=== PATIENT | male | born 1965 | race Caucasian/White ===

== ENCOUNTER 2017-05-10 16:38 | Outpatient (CLI) | payer BC ==
--- NOTE | 2017-05-10 17:23 | RAD ---
PA AND LATERAL CHEST: 05/10/17 HISTORY: Preop. Heart size and mediastinum are within normal limits. The lungs are clear of infiltrates. There are ar thritic changes in the spine. IMPRESSION: No active intrathoracic disease. POS: [facility]
[2017-05-10 17:57] LABS: ALT (SGPT) 33 U/L (8-55); AST (SGOT) 27 U/L (5-34); Alkaline Phosphatase 57 U/L (40-150); Anion Gap 17 mmol/L (10-20); BUN (Urea Nitrogen) 24 mg/dL (8.4-25.7); Bilirubin, Direct 0.3 mg/dL (0.1-0.3); Bilirubin, Total 0.7 mg/dL (0.2-1.2); Calc. Creatinine Clearance 0 mL/min (70-130); Calcium 10.2 mg/dL (7.8-10.44); Carbon Dioxide 27 mmol/L (22-29); Chloride 100 mmol/L (98-107); Estimated GFR-MDRD 84; Protein, Total 7.8 g/dL (6.0-8.3)
--- NOTE | 2017-05-11 17:00 | EKG ---
Test Reason : Blood Pressure : / mmHG Vent. Rate : 092 BPM Atrial Rate : 092 BPM P-R Int : 000 ms QRS Dur : 090 ms QT Int : 364 ms P-R-T Axes : 256 054 -06 degrees QTc Int : 450 ms Unusual P axis, possible ectopic atrial rhythm Abnormal QRS-T angle, consider primary T wave abnormality Abnormal ECG No previous ECGs available Confirmed by DR. Josephine WILCOX ([id number]) on 05/11/2017 5:00:29 PM Referred By: KATHY Confirmed By:DR. Josephine WILCOX
== END 2017-05-10 16:39 | disposition home or self-care (01) ==
LOC: LABBT 16:38
PROVIDERS: ATTEND Surgery
DX: Z01.818 Encounter for other preprocedural examination (principal); E66.01 Morbid (severe) obesity due to excess calories
CPT/HCPCS: 71020; 80053; 80076; 83036; 93005; 93010

== ENCOUNTER 2017-05-23 05:48 | Inpatient (IN) | payer BC ==
[2017-05-10 16:46] VITALS: BMI 40.3
[2017-05-23] MEDS ORDERED: HYDROmorphone 0.5 MG/0.5 ML SYRINGE ONE (06:30)
[2017-05-23] MEDS ORDERED: metroNIDAZOLE 500 MG/100 ML BAG ONE (06:30)
[2017-05-23] MEDS ORDERED: Fentanyl 100 MCG/2 ML VIAL ONE (06:31)
[2017-05-23] MEDS ORDERED: Bupivacaine/Epinephrine 0.25% 30 ML VIAL ONE (06:39)
[2017-05-23] MEDS ORDERED: CEFAZOLIN/Water 2 GM/20 ML SYRINGE ONE (06:42)
[2017-05-23] MEDS ORDERED: Heparin 5,000 UNITS/ML VIAL ONE (06:42)
[2017-05-23] MEDS ORDERED: Hydrocodone-Acetamin 15 ML UDCUP PO PRN (08:44)
[2017-05-23] MEDS ORDERED: diphenhydrAMINE 50 MG/ML VIAL IVP PRN ×2 (08:44→09:23)
[2017-05-23] MEDS ORDERED: Dextrose 50% Abboject 50 ML SYRINGE SLOW IVP PRN (08:44)
[2017-05-23] MEDS ORDERED: Ondansetron HCl/PF 4 MG/2 ML Vial IVP PRN ×3 (08:44→09:23)
[2017-05-23] MEDS ORDERED: Promethazine HCl 25 MG/ML VIAL IM PRN ×3 (08:44→09:23)
[2017-05-23] MEDS ORDERED: hydrALAZINE 20 MG/ML VIAL SLOW IVP PRN (08:44)
[2017-05-23] MEDS ORDERED: Dextrose 5% in Water 1,000 ML IV PRN (08:44)
[2017-05-23] MEDS ORDERED: Naloxone HCl 0.4 mg/ml Vial IV PRN (09:23)
[2017-05-23] MEDS ORDERED: diphenhydrAMINE 25 MG CAP PO PRN (09:23)
[2017-05-23] MEDS ORDERED: diphenhydrAMINE 50 MG/ML VIAL IM PRN (09:23)
[2017-05-23] MEDS ORDERED: Zolpidem Tartrate 5 MG TAB PO PRN (09:23)
[2017-05-23] MEDS ORDERED: Fentanyl 5000 MCG/250 ML CADD IVPB PRN (09:23)
[2017-05-23] MEDS ORDERED: Promethazine HCl 25 MG/ML VIAL SLOW IVP PRN (09:23)
[2017-05-23] MEDS ORDERED: Communication Order-Pharmacy FS SCH (09:30)
[2017-05-23] MEDS ORDERED: fentaNYL Citrate/PF 2,000 MCG in Sodium Chloride 0.9% 60 ML IV PRN (10:00)
--- NOTE | 2017-05-23 10:09 | OP ---
PREOPERATIVE DIAGNOSIS: Morbid obesity. SURGEON: Luis Ahmadi M.D. PROCEDURE PERFORMED: Laparoscopic sleeve gastrectomy. INDICATIONS: A 51-year-old male, morbidly obese, who has attempted multiple weight loss programs wit hout success. FINDINGS: A 38 Arabic bougie used. PROCEDURE IN DETAIL: After informed consent was obtained, the patient was taken to the operating javier m and given general endotracheal anesthesia. She was placed in the supine position. The abdomen was prepped and draped in the usual fashion. Local anesthesia infiltrated subcutaneously and deep and a 12 mm incision was performed approximately 8 inches below the xiphoid slightly to the left. Veress needle inserted. Drop test performed. Pneumoperitoneum was created to a pressure of 15 mmHg. A 0 d egree laparoscope inserted. Under direct vision, a Fortunatoen liver retractor inserted. Left lobe of liver retracted superiorly. The pylorus identified a 12 mm port placed on the right beneath it and two 12s placed left subcostal. The omentum was taken off the greater curvature 5 cm from the omentum utilizing the LigaSure. The short gastrics divided with LigaSure and left crura defined with the Li gaSure. A 38-Arabic bougie inserted and directed into the antrum. The linear 60 mm green load stapl er used to divide the antrum to the bougie. Another green load used along the bougie, two gold loads used along the bougie, and then two blue loads through the angle of His. The bougie removed, intrao perative endoscopy was performed. The video endoscope inserted under direct vision and advanced into the sleeve. Staple line inspected. There was no bleeding. Staple line then tested by inflating th e new stomach with pressurized air under water. There was no air leak. Stomach decompressed. Scope removed. The remnant stomach removed from the abdomen through the left lateral port site. The fasc ia closed with 0 Vicryl suture and the GraNee needle. Hemostasis was assured. Trocars and retractor s were removed. Skin closed with interrupted 4-0 Rapide. Dermabond applied. The patient tolerated the procedure well and transferred to recovery in good condition. Sponge and needle count verified c orrect x2.
[2017-05-23] MEDS ORDERED: Ketorolac Tromethamine 30 MG/ML VIAL IVP SCH (12:00)
[2017-05-23] MEDS: Pantoprazole 40 MG VIAL IVP SCH (12:53)
[2017-05-23] MEDS: Enoxaparin Sodium 40 MG/0.4 ML SYRINGE SC SCH (12:53)
[2017-05-23] MEDS: 1/2 NS w/KCL 20 mEq 1,000 ML IV SCH ×3 (13:06→20:59)
[2017-05-23] MEDS ORDERED: Succinylcholine Chloride 20 MG/ML 10 ml SYRINGE FS ONE (14:02)
[2017-05-23] MEDS ORDERED: Lidocaine 1% PF 5 ML VIAL ONE (14:02)
[2017-05-23] MEDS ORDERED: Glycopyrrolate 0.2 MG/ML 5 ML SYRINGE ONE (14:02)
[2017-05-23] MEDS ORDERED: Dexamethasone 20 MG/5 ML VIAL ONE (14:02)
[2017-05-23] MEDS ORDERED: Ketorolac Tromethamine 30 MG/ML VIAL ONE (14:02)
[2017-05-23] MEDS ORDERED: Metoclopramide HCl 10 MG/2 ML VIAL ONE (14:02)
[2017-05-23] MEDS ORDERED: Ondansetron HCl/PF 4 MG/2 ML Vial ONE (14:02)
[2017-05-23] MEDS ORDERED: Propofol 200 MG/20 ML VIAL ONE (14:02)
[2017-05-23] MEDS: Ketorolac Tromethamine 30 MG/ML VIAL IVP SCH ×2 (15:22→20:18)
[2017-05-23] MEDS: CEFAZOLIN/Water 2 GM/20 ML SYRINGE SLOW IVP SCH ×2 (15:27→23:25)
[2017-05-24] MEDS: Ketorolac Tromethamine 30 MG/ML VIAL IVP SCH ×2 (02:27→08:33)
[2017-05-24 05:47] LABS: #Basophils 0.1 thou/uL (0.0-0.2); #Lymphocytes 1.4 thou/uL (1.20-3.40); #Monocytes 1.1 thou/uL (0.11-0.59); #Neutrophils 11.4 thou/uL (1.40-6.50); %Basophils 0.4 % (0.0-1.0); %Eosinophils 0.1 % (0.0-10.0); %Lymphocytes 9.7 % (21.0-51.0); %Monocytes 7.8 % (0.0-10.0); %Neutrophils 81.9 % (42.0-75.0); Hemoglobin 12.2 g/dL (14.0-18.0); Mean Corpuscular HGB CONC 32.5 g/dL (32.0-36.0); Mean Corpuscular Hemoglobin 30.4 pg (27.0-31.0); Mean Corpuscular Volume 93.4 fl (80.0-94.0); Mean Platelet Volume 7.4 fL (7.4-10.4); Platelet Count 200 thou/uL (130-400); RBC Distribution Width 13.2 % (11.5-14.5); White Blood Cell (WBC) Count 13.9 thou/uL (4.8-10.8)
[2017-05-24 05:58] LABS: Anion Gap 11 mmol/L (10-20); BUN (Urea Nitrogen) 20 mg/dL (8.4-25.7); Calc. Creatinine Clearance 171 mL/min (70-130); Calcium 8.8 mg/dL (7.8-10.44); Carbon Dioxide 24 mmol/L (22-29); Chloride 106 mmol/L (98-107); Estimated GFR-MDRD 87; Glucose 91 mg/dL (70-105); Potassium 4.1 mmol/L (3.5-5.1); Sodium 137 mmol/L (136-145)
[2017-05-24 08:09] VITALS: BP 115/72
[2017-05-24] MEDS: Pantoprazole 40 MG VIAL IVP SCH (08:33)
[2017-05-24] MEDS: Enoxaparin Sodium 40 MG/0.4 ML SYRINGE SC SCH (08:34)
--- NOTE | 2017-05-24 09:06 | RAD ---
GASTROGRAFIN UPPER GI SERIES: Date: 05/24/17 HISTORY: Patient with gastric stapling. TECHNIQUE: 15 mL Gastrografin was given orally. Spot images were obtained. RADIATION DOSIMETRY: 30 seconds of fluoroscopy and DAP of 158 mGy*cm^2. FINDINGS: The Gastrografin was ingested without difficulty. The esophagus is unremarkable. The stomach is unrem arkable. No evidence of leakage of contrast seen outside of the gastric lumen. Contrast passes throug h the stomach and into the antrum and duodenum without difficulty. IMPRESSION: Gastric stapling performed. No evidence of extravasation of contrast seen outside of the GI lumen. POS: [facility]
[2017-05-24] MEDS: 1/2 NS w/KCL 20 mEq 1,000 ML IV SCH (09:26)
[2017-05-24 12:01] VITALS: TEMP 98.1
--- NOTE | 2017-05-24 12:01 | DIS ---
DISCHARGE DIAGNOSIS: Morbid obesity. PROCEDURES DURING ADMISSION: Laparoscopic sleeve gastrectomy, intraoperative esophagogastroscopy, po stoperative Gastrografin swallow. HOSPITAL COURSE: The patient was admitted, taken to the operating room where he underwent sleeve gas trectomy. Postoperatively, he had a Gastrografin swallow was fine. He was started on liquids, claduio ating them well. He is discharged home on hydrocodone and Zofran and will follow up with me in [address] [place] [id number].
== END 2017-05-24 12:21 | disposition home or self-care (01) | DRG 621 ==
LOC: SDC 05:48 → SURG A 08:45
PROVIDERS: ADMIT Surgery; ATTEND Surgery
PROC: 0DB64Z3 Excision of Stomach, Percutaneous Endoscopic Approach, Vertical (ICD-10-PCS; principal; 2017-05-23)
PROC: 0DJ08ZZ Inspection of Upper Intestinal Tract, Via Natural or Artificial Opening Endoscopic (ICD-10-PCS; 2017-05-23)
DX: E66.01 Morbid (severe) obesity due to excess calories (principal); G47.30 Sleep apnea, unspecified; Z68.41 Body mass index [BMI] 40.0-44.9, adult
CPT/HCPCS: 36415; 36416; 74241; 80048; 85025; 88307; 88312; 94760; C9113; J0131; J1100; J1170; J1644; J1650; J1885; J2001; J2405; J2704; J2765; J3010; J7050